=== PATIENT | female | born 1940 | race Caucasian/White ===

== ENCOUNTER 2017-01-08 06:59 | Day surgery (SDC) | payer BC, MEDICARE ==
[~2017-01-08 06:59] MED LIST: Lactated Ringers 1,000 ML IV SCH; Lidocaine 1%/Sod Bicarbonate in NS 8.4% 1 ML Syringe IV PRN; Sodium Chloride 0.9% 10 ML Syringe FLUSH PRN
[2017-01-08] MEDS ORDERED: fentaNYL 100 MCG/2 ML SDV ONE (07:13)
[2017-01-08] MEDS ORDERED: Propofol 200 MG/20 ML SDV ONE ×3 (07:13→09:26)
[2017-01-08] MEDS ORDERED: Ondansetron 4 MG/2 ML SDV ONE (07:14)
--- NOTE | 2017-01-08 07:27 | PCM.PREANE ---
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 Respiratory: Reports: no symptoms (smoker) Cardiovascular: Reports: blood pressure problem GI: Reports: no symptoms - PHYSICAL ASSESSMENT HR: 56 O2 Sat by Pulse Oximetry: 95 RR: 16 BP: 142/64 Temp: 36.8 C Height: 1.55 m Weight: 74.843 kg NPO Status Date: 01/07/17 NPO Status Time: 21:30 ASA Class: 3 Mental Status: alert & oriented x3 Airway Class: Mallampati = 2 Dentition: Reports: dentures, edentulous Thyro-Mental Finger Breadths: 3 Mouth Opening Finger Breadths: 3 ROM/Head Extension: limited/partial Respiratory Status: lungs clear to auscultation bilaterally Cardiovascular Status: regular rate & rhythm, normal S1, S2, blood pressure WNL - ALLERGIES Allergies/Adverse Reactions: Allergies Allergy/AdvReac Type Severity Reaction Status Date / Time lisinopril Allergy Anaphylactic Verified 01/07/17 15:02 Shock valsartan [From Diovan] Allergy Anaphylactic Verified 01/07/17 15:02 Shock - BLOOD Blood Available: No Product(s) Available: None - ANESTHESIA PLAN Preop Beta Joleen: No Beta Joleen: Metoprolol Beta-Joleen Last Dose Date: 01/08/17 Beta-Joleen Last Dose Time: 05:30 Anesthesia Type Planned: general anesthesia - ACKNOWLEDGEMENTS Pt an appropriate candidate for the planned anesthesia: Yes Alternatives and risks of anesthesia discussed w pt/guardian: Yes Pt/Guardian understands and agree with anesthesia plan: Yes PreAnesthesia Questionnaire HEENT History: Reports: Impaired vision Other HEENT History: wears glasses Cardiovascular History: Reports: CAD, Heart murmur, High cholesterol, Hypertension Respiratory History: Reports: Bronchitis, recurrent Other Respiratory History: 50 + year smoking history, ground galss opacity present on lung imaging Gastrointestinal History: Reports: None Genitourinary History: Reports: None [employer] M[employer]ER History: Reports: Other (see below) Other OB/BYN History: post menopausal bleeding Musculoskeletal History: Reports: None Neurological History: Reports: None Psychiatric History: Reports: None Endocrine/Metabolic History: Reports: None Hematologic History: Reports: None Immunologic History: Reports: None Oncologic (Cancer) History: Reports: Squamous cell carcinoma Other Oncologic History: malignant mass under left jaw, mass removed along with small amount of jaw bone 6 years ago followed by radiation. Pt also had a couple small masses in L nare that were removed 2 years ago. Dermatologic History: Reports: None - Past Surgical History Head Surgeries/Procedures: Reports: None HEENT Surgical History: Reports: Cataract surgery Other HEENT Surgeries/Procedures: Pt had malignant growth below L side of jaw, mass and small amount of jaw bone removed, tongue reconstuction Other Oncologic Surgeries/Procedures: see above - SUBSTANCE USE Smoking Status *Q: Current Every Day Smoker Tobacco Use Within Last Twelve Months: Cigarettes Second Hand Smoke Exposure: Yes Recreational Drug Use History: No - HOME MEDS Home Medications: Home Meds Calcium Carbonate [Calcium] 500 mg PO BID 05/19/15 [History] Hydrochlorothiazide 12.5 mg PO DAILY 05/19/15 [History] Metoprolol Succinate [Toprol XL] 25 mg PO DAILY 05/19/15 [History] Multivitamin [Multi-Vitamin Daily] 1 tab PO DAILY 05/19/15 [History] NIFEdipine [Nifedipine ER] 30 mg PO DAILY 05/19/15 [History] Ibuprofen 1 - 3 tab PO Q6H PRN 01/07/17 [History] Vitamin B Complex [B Complex] 1 tab PO DAILY 01/07/17 [History] - CURRENT (IN HOUSE) MEDS Current Meds: Current Medications Lactated Ringer's (Ringers, Lactated) 1,000 mls @ 125 mls/hr IV ASDIRECTED MAUREEN Stop: 01/08/17 23:00 Lidocaine/Sodium Bicarbonate (Buffered Lidocaine 1% In Ns 8.4%) 0.25 ml IV ONETIME PRN PRN Reason: Prior to IV Start Stop: 01/08/17 18:00 Sodium Chloride (Saline Flush) 10 ml FLUSH ASDIRECTED PRN PRN Reason: Keep Vein Open Stop: 01/08/17 18:00 Discontinued Medications Fentanyl (Sublimaze) Confirm Administered Dose 100 mcg .ROUTE .STK-MED ONE Stop: 01/08/17 07:14 Ondansetron HCl (Zofran) Confirm Administered Dose 4 mg .ROUTE .STK-MED ONE Stop: 01/08/17 07:15 Propofol (Diprivan 20 Ml) Confirm Administered Dose 200 mg .ROUTE .[facility] ONE Stop: 01/08/17 07:14
[2017-01-08] MEDS ORDERED: Ondansetron 4 MG/2 ML SDV IVPUSH PRN (07:32)
[2017-01-08] MEDS ORDERED: fentaNYL 100 MCG/2 ML SDV IVPUSH PRN (07:32)
[2017-01-08] MEDS ORDERED: Bupivacaine 0.5% 30 ML SDV ONE (08:05)
[2017-01-08] MEDS ORDERED: ePHEDrine/Normal Saline 25 MG/5 ML Syringe ONE (08:40)
--- NOTE | 2017-01-08 09:24 | PCM.OPNOTE ---
- General Post-Op/Procedure Note Date of Surgery/Procedure: 01/08/17 Operative Procedure(s): Hysteroscopy, dilation and curettage Findings: polypoid appearing endometrium Pre Op Diagnosis: postmenopausal bleeding Post-Op Diagnosis: Same Anesthesia Technique: MAC Primary Surgeon: Lamar Dhaliwal Anesthesia Provider: Merlyn Calvert EBL in mLs: 20 Complications: None Condition: Good Free Text/Narrative:: Patient taken to OR. MAC initiated. Prepped and draped in lithotomy. Speculum placed. Local anesthesia infiltrated. Dilated to allow hysteroscope passage. Hysteroscopy preformed. Curettage preformed.
--- NOTE | 2017-01-08 09:45 | PCM48HPAN ---
Post Anesthesia Note - EVALUATION WITHIN 48HRS OF ANESTHETIC Vital Signs in Normal Range: Yes Patient Participated in Evaluation: Yes Respiratory Function Stable: Yes Airway Patent: Yes Cardiovascular Function Stable: Yes Hydration Status Stable: Yes Pain Control Satisfactory: Yes Nausea and Vomiting Control Satisfactory: Yes Mental Status Recovered: Yes
--- NOTE | 2017-01-08 10:23 | PCM.SN ---
- Free Text/Narrative Note: patient has a history of jaw cancer with s/p radiation. pt has limited neck extension, opens mouth wide, is edentuous. attempted to place LMA size 4 first , then size 3 with no success. Size 4, I could only get to post pharynx and was very tight. attempted size 3, also very tight. converted to MAC with success. If needing GA, I would have the glidescope at bedside and would utilize smaller ETT.
--- NOTE | 2017-01-08 10:31 | PCM.OPNOTE ---
- General Post-Op/Procedure Note Date of Surgery/Procedure: 01/08/17 Operative Procedure(s): Diagnostic colonoscopy with cold forceps biopsy and tattooing Pre Op Diagnosis: Abnormal PET scan, no previous colonoscopy Post-Op Diagnosis: 1. Ascending colon mass, highly suspicious for cancer. 2. Colon polyps. 3. Severe diverticulosis of the sigmoid colon Anesthesia Technique: MAC Primary Surgeon: Judy Luke Anesthesia Provider: Merlyn Lowry Pathology: 1. Ascending colon mass 2. Transverse colon polyps x 2 3. Splenic flexure polyp 4. Rectal polyps x 3 Fluid Replacement, Intraop: 900 (mL crystalloid ) EBL in mLs: 1 Complications: None Condition: Good Free Text/Narrative:: INDICATION FOR PROCEDURE: The patient is a 76-year-old woman who was referred to me by BERT Watters for evaluation for an abnormal PET scan with uptake in the ascending colon and some associated lymph nodes. Performing a diagnostic colonoscopy and the associated risks of the procedure had been discussed with the patient. The patient found these risks acceptable and agreed to proceed. DESCRIPTION OF PROCEDURE: The patient was taken to the operating room and placed in left lateral decubitus position. After induction of adequate sedation , a digital rectal exam was performed which was unremarkable. A pediatric Olympus colonoscope was inserted into the rectum and guided under direct visualization to the appendiceal orifice and ileocecal valve. A mass was noted in the ascending colon, it was ulcerated and nonobstructive. It was not actively bleeding. Multiple cold forceps biopsies were obtained. The area adjacent to the mass, just distal to it, was tattooed with Swathi ink in 3 quadrants. 2 small sessile transverse colon polyps were noted and removed using cold forceps. One small sessile splenic flexure polyp was noted and removed using cold forceps. There were multiple diminutive rectal polyps, 3 of the polyps were removed using cold forceps, I suspect that these are most likely hyperplastic. The quality of the prep was good. There was no evidence of angiodysplasias. The scope was withdrawn into the rectum and retroflexed. There was no significant prominence of the patient's internal hemorrhoids. The scope was straightened, the colon was desufflated, and the scope was withdrawn. The patient was awakened from sedation and transferred to the recovery room in stable condition having tolerated the procedure well. POSTOPERATIVE PLAN: I discussed with the patient and her son my intraoperative findings and recommendations, with my suspicion of an ascending colon cancer that has spread locally to the lymph nodes based on PET. The patient will need to have a CAT scan of the chest, abdomen, and pelvis. She will need preoperative laboratory studies including a CEA, CBC, and CMP. The patient will also need to see BERT Watters for preoperative evaluation for laparoscopic right hemicolectomy. She will need an echocardiogram, pulmonary function testing, and a nuclear stress test.
[2017-01-08 11:15] VITALS: BP 124/61
== END 2017-01-08 11:03 | disposition home or self-care (01) ==
LOC: JD.SDS 06:59
PROVIDERS: ATTEND Obstetrics & Gynecology
DX: N95.0 Postmenopausal bleeding (principal); D12.3 Benign neoplasm of transverse colon; K63.5 Polyp of colon; E78.5 Hyperlipidemia, unspecified; I10 Essential (primary) hypertension
CPT/HCPCS: 45380; 58558; 88305; J3010; J7050; J7120; 00810; J2405; J2704

== ENCOUNTER → 2017-03-23 | Day surgery (SDC) | payer BC, MEDICARE ==
[~2017-03-23] MED LIST changes: +Bupivacaine 0.25%/EPINEPHrine 1:200,000 30 ML SDV ONE; +Bupivacaine 0.5%/EPINEPHrine 1:200,000 50 ML MDV ONE; +Heparin Sodium 5,000 Units/ML Vial ONE; +Lidocaine 1% 4 ML ONE; +Lidocaine 1% with EPINEPHrine 1:100,000 20 ML MDV ONE; +Midazolam 1 MG/ML 2 ML SDV ONE; +Propofol 200 MG/20 ML SDV ONE; +Sodium Chloride 0.9% 50 ML SDV ONE; +ceFAZolin 1 GM Vial ONE; +ePHEDrine/Normal Saline 25 MG/5 ML Syringe ONE; +fentaNYL 100 MCG/2 ML SDV ONE
--- NOTE | 2017-03-23 09:51 | PCM.PREANE ---
Preanesthetic Assessment - Anesthesia/Transfusion/Family Hx Anesthesia History: Prior Anesthesia Without Reaction Family History of Anesthesia Reaction: No Transfusion History: No Prior Transfusion(s) Type of Transfusion Reactions: Reports: Unknown Intubation History: History of Difficulty Intubation - Review of Systems General: No Symptoms Pulmonary: No Symptoms Cardiovascular: No Symptoms Gastrointestinal: No symptoms Neurological: No Symptoms Other: Reports: None - Physical Assessment NPO Status Date: 03/22/17 NPO Status Time: 23:00 (sip of water at 0715 with pills) Pulse: 51 O2 Sat by Pulse Oximetry: 98 Respiratory Rate: 16 Blood Pressure: 130/59 Temperature: 98.7 F Height: 5 ft 1 in Weight: 74.843 kg ASA Class: 3 Mental Status: Alert & Oriented x3 Dentition: Reports: Dentures (top ), Edentulous (bottom) Thyro-Mental Finger Breadths: 3 Mouth Opening Finger Breadths: 3 ROM/Head Extension: Limited/Partial Lungs: Clear to auscultation, Normal respiratory effort Cardiovascular: Regular Rate, Regular Rhythm - Lab Values: 03/04/17 labs Cr 0.65 BUN 22 01/12/17 Hgb 12.9 PLT 231 K 3.4 Na 144 Cl 105 - Imaging/EKG Impressions: 12/18/16 EKG Sinus anna left axis deviation hr 53 echo 01/18/17 EFf 60-65% - Allergies Allergies/Adverse Reactions: Allergies Allergy/AdvReac Type Severity Reaction Status Date / Time lisinopril Allergy Anaphylactic Verified 03/22/17 13:45 Shock valsartan [From Diovan] Allergy Anaphylactic Verified 03/22/17 13:45 Shock - Blood Blood Available: No - Anesthesia Plan Beta Joleen: Metoprolol Med Last Dose Date: 03/23/17 Med Last Dose Time: 07:15 - Acknowledgements Anesthesia Type Planned: MAC Pt an Appropriate Candidate for the Planned Anesthesia: Yes Alternatives and Risks of Anesthesia Discussed w Pt/Guardian: Yes Pt/Guardian Understands and Agrees with Anesthesia Plan: Yes PreAnesthesia Questionnaire HEENT History: Reports: Impaired vision Other HEENT History: wears glasses Cardiovascular History: Reports: CAD, Heart murmur, High cholesterol, Hypertension Respiratory History: Reports: Bronchitis, recurrent Other Respiratory History: 50 + year smoking history, ground galss opacity present on lung imaging Gastrointestinal History: Reports: None Genitourinary History: Reports: None 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 Pt also had a couple small masses in L nare that were removed 2 years ago. Dermatologic History: Reports: None - Past Surgical History Head Surgeries/Procedures: Reports: None HEENT Surgical History: Reports: Cataract surgery Other HEENT Surgeries/Procedures: Pt had malignant growth below L side of jaw, mass and small amount of jaw bone removed, tongue reconstuction GI Surgical History: Reports: Colonoscopy, Other (see below) Other GI Surgeries/Procedures: laparoscopic R hemicolectomy Female Surgical History: Reports: Hysterectomy Other Oncologic Surgeries/Procedures: see above - SUBSTANCE USE Smoking Status *Q: Current Every Day Smoker (1 ppd for 61 years) Tobacco Use Within Last Twelve Months: Cigarettes Second Hand Smoke Exposure: Yes Days Per Week of Alcohol Use: 0 Recreational Drug Use History: No - HOME MEDS Home Medications: Home Meds Metoprolol Succinate [Toprol XL] 25 mg PO DAILY 05/19/15 [History] Multivitamin [Multi-Vitamin Daily] 1 tab PO DAILY 05/19/15 [History] NIFEdipine [Nifedipine ER] 30 mg PO DAILY 05/19/15 [History] Ibuprofen 1 - 3 tab PO Q6H PRN 01/07/17 [History] Vitamin B Complex [B Complex] 1 tab PO DAILY 01/07/17 [History] Calcium Carbonate/Vitamin D3 [Calcium 500-Vit D3 200 Tablet] 1 tab PO DAILY 07/01 [History] Hydrochlorothiazide 25 mg PO DAILY 03/22/17 [History] Hyrum-3/DHA/Epa/Fish Oil [Fish Oil 500 MG Softgel] 500 mg PO DAILY 03/22/17 [ History] - CURRENT (IN HOUSE) MEDS Current Meds: Current Medications Lactated Ringer's (Ringers, Lactated) 1,000 mls @ 125 mls/hr IV ASDIRECTED MAUREEN Lidocaine/Sodium Bicarbonate (Buffered Lidocaine 1% In Ns 8.4%) 0.25 ml IV ONETIME PRN PRN Reason: Prior to IV Start Sodium Chloride (Saline Flush) 10 ml FLUSH ASDIRECTED PRN PRN Reason: Keep Vein Open Discontinued Medications Cefazolin Sodium (Ancef) Confirm Administered Dose 2 gm .ROUTE .STK-MED ONE Stop: 03/23/17 09:51 Fentanyl (Sublimaze) Confirm Administered Dose 100 mcg .ROUTE .STK-MED ONE Stop: 03/23/17 09:51 Lidocaine HCl (Xylocaine-Mpf 1%) Confirm Administered Dose 4 mls @ as directed .ROUTE .STK-MED ONE Stop: 03/23/17 09:51 Midazolam HCl (Versed 1 Mg/Ml) Confirm Administered Dose 2 mg .ROUTE .STK-MED ONE Stop: 03/23/17 09:51 Propofol (Diprivan 20 Ml) Confirm Administered Dose 200 mg .ROUTE .STK-MED ONE Stop: 03/23/17 09:51
--- NOTE | 2017-03-23 11:25 | PCM48HPAN ---
Post Anesthesia Note - EVALUATION WITHIN 48HRS OF ANESTHETIC Vital Signs in Normal Range: Yes Patient Participated in Evaluation: Yes Respiratory Function Stable: Yes Airway Patent: Yes Cardiovascular Function Stable: Yes Hydration Status Stable: Yes Pain Control Satisfactory: Yes Nausea and Vomiting Control Satisfactory: Yes Mental Status Recovered: Yes (no complaints. awake and talking)
--- NOTE | 2017-03-23 11:53 | PCM.OPNOTE ---
- General Post-Op/Procedure Note Date of Surgery/Procedure: 03/23/17 Operative Procedure(s): 1. Right subclavian Port-A-Cath placement. 2. Fluoroscopic guidance and interpretation Pre Op Diagnosis: 1. 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 Maddie Hoffman for Port-A-Cath placement. The patient has known adenocarcinoma of the colon and endometrium and has completed surgical excision and is ready to proceed with chemotherapy. She has had a previous (remote) left neck dissection for cancer. Due to this, we wanted to proceed with line placement on the right side as it was likely the patient had no internal jugular on the left, however, an operative report from the neck dissection was unavailable for review. I discussed with the patient placement of a Port-A-Cath and the associated risks. The patient found these risks acceptable and agreed to proceed. DESCRIPTION OF PROCEDURE: The patient was taken to the operating room and placed in the supine position. The arms were tucked at the sides bilaterally and pressure points were padded. A transverse subscapular roll was placed. The patient's head was placed in a gel doughnut. Preoperative antibiotics were administered as per protocol. The patient was placed in Trendelenburg. The neck and upper chest were prepped and draped in usual sterile fashion with chlorhexidine. We had discussed placement of the Port-A-Cath preferentially on the right. Approximately 10 mL of local anesthetic were infiltrated into the area of the planned port placement and injection site. A stab incision was made with a 15 blade. A 16-gauge needle was then used to access the right subclavian vein with return of nonpulsatile blood on the first attempt. A guidewire was passed without difficulty and its position was confirmed using fluoroscopy in the inferior vena cava. The needle was removed and the port pocket incision was made. A pocket was made directly over the chest wall fascia. A dilator was then advanced over the guidewire under direct fluoroscopic visualization. The inner cannula was removed as well as the wire. The catheter was advanced to the atriocaval junction and this was performed under fluoroscopy. The catheter was then trimmed and attached to the port. The port was then accessed and nonpulsatile blood was easily withdrawn. The port was then flushed with sterile saline. The port was secured in the pocket using 2-0 Prolene interrupted suture x3. The port was accessed once more and blood was aspirated and a total of 2 mL of 5000 units per mL heparin was instilled into the catheter for packing. 3-0 Vicryl suture was then used to reapproximate the deep subcutaneous tissue. 4-0 Vicryl was then used in running subcuticular fashion to reapproximate the skin. A folded 2 x 2 and a Tegaderm was applied. The patient was awakened from sedation and transferred to the recovery room in stable condition having tolerated the procedure well. Sponge and instrument counts were reported as correct at the end of the case. Fluoroscopy Report - Fluoroscopic guidance was used throughout the procedure to visualize wire placement as well as advancement of the dilator. I also provided immediate interpretation of the images in addition to utilization of the guidance. The patient's right chest and mediastinum was examined. There was no obvious pneumothorax. No obvious lung masses were noted in the limited field of view. The guidewire was seen entering the right subclavian vein and traversing the superior vena cava. The dilator was advanced into the right subclavian vein. The cardiac silhouette was unremarkable. No other acute findings were noted. POST-OPERATIVE INSTRUCTIONS: A postoperative chest x-ray was obtained which I immediately reviewed. The port was in excellent position and there was no evidence of pneumothorax. The Port-A-Cath is immediately usable. The patient has been provided with a prescription for EMLA cream, to apply a dime-sized amount approximately 15-20 minutes prior to accessing the port. Pain medication was also provided. The patient may follow up with me on an as needed basis.
[2017-03-23 13:29] VITALS: BP 155/63
--- NOTE | 2017-03-24 11:56 | CR ---
Addendum: Study has a diagnostic code as follows: Diagnostic code #2 --- Addendum1 above dictated on [03/24/2017 12:52] by [Nikki Trejo, Gurpreet Del Cid] --- --- Addendum1 above signed on [03/24/2017 12:54] by [Nikki Trejo, Gurpreet Del Cid] --- --- Original report below dictated on [03/24/2017 07:09] by [Nikki Trejo Hilton J.] --- --- Original report below signed on [03/24/2017 11:52] by [Nikki Trejo, Gurpreet Del Cid] --- Thoracic spine: Two fluoroscopic spot views were obtained in frontal projection centered to the lower thoracic spine/lower mediastinum utilizing C-arm device. Disc space narrowing and endplate osteophytes are seen. I do not see definite visualization of the Port-A-Cath catheter. Fluoroscopy time given as 54.1 seconds. Impression: 1. Findings as noted above. --- Addendum1 signed ---
--- NOTE | 2017-03-24 11:56 | CR ---
Chest: Portable view of the chest was obtained. Comparison: Previous chest x-ray of 02/06/13. Heart is enlarged. Hiatal hernia is seen which is small to moderate in size. Lungs are clear but hyperinflated suggesting emphysematous change. Right-sided Port-A-Cath is seen. Tip lies within the superior vena cava. Mild degenerative change and scoliosis is present within the spine. Impression: 1. Port-A-Cath. Tip lies within the superior vena cava. 2. Other incidental findings as described above. Diagnostic code #2
== END | disposition home or self-care (01) ==
LOC: JD.SDS 09:29
PROVIDERS: ATTEND Surgery
DX: C18.9 Malignant neoplasm of colon, unspecified (principal); C54.1 Malignant neoplasm of endometrium; I10 Essential (primary) hypertension; E78.5 Hyperlipidemia, unspecified; Z92.3 Personal history of irradiation; Z72.0 Tobacco use; Z88.8 Allergy status to other drugs, medicaments and biological substances; Z90.710 Acquired absence of both cervix and uterus; Z98.890 Other specified postprocedural states; Z79.899 Other long term (current) drug therapy; F17.210 Nicotine dependence, cigarettes, uncomplicated
CPT/HCPCS: 36561; 71010; 77001; C1788; J0690; J1644; J2250; J3010; J7050; J7120; 00532; J2704

== ENCOUNTER 2019-04-30 13:58 | Emergency (ER) | payer OTHER, BC, MEDICARE ==
[2019-04-30 14:08] VITALS: BP 196/147
--- NOTE | 2019-04-30 15:01 | EDM.PDOC ---
ED HPI GENERAL MEDICAL PROBLEM - General Chief Complaint: Lower Extremity Injury/Pain Stated Complaint: LT KNEE, RT ELBOW AND FACE INJURY Time Seen by Provider: 04/30/19 14:58 Source of Information: Reports: Patient History Limitations: Reports: No Limitations - History of Present Illness INITIAL COMMENTS - FREE TEXT/NARRATIVE: 79-year-old female reports that she was at work this morning and slipped on a wet floor outside of one of the freezer units. This caused her to fall forwards onto all fours. She was holding onto a container at the time and it came up and hit her in the right side of the face as well. States she states injury occurred shortly after 1200 hrs. today. She does have some tenderness in the right kevin-face over the maxillary sinus. Tenderness to the right elbow tenderness to the left hand proximal to the first metacarpal. She has marked swelling over her left anterior knee and mild swelling over the right knee. She states she can walk okay although she's limping. She denies hitting her head hard and certainly no loss of consciousness. Denies any worsening of her neck pain. 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 She has a Port-A-Cath in her right upper anterior chest. She denies hitting hurting her ribs or sternum when she fell. Onset: Today Onset Date: 04/30/19 Onset Time: 12:05 Duration: Hour(s): Location: Reports: Face, Upper Extremity, Left (Left radial hand over the wrist and Toribio of the first metacarpal joint), Upper Extremity, Right, Lower Extremity , Left (Right olecranon process of elbow left knee with marked swelling and hematoma over the patella), Lower Extremity, Right (Right anterior knee with superficial abrasions and no swelling) Quality: Reports: Ache (Particularly left knee and right elbow and right ekvin- face.) Severity: Moderate (Moderate contusion and swelling to the left knee with hematoma formation) Improves with: Reports: Rest Worsens with: Reports: Movement (Walking) Context: Denies: Activity, Exercise, Lifting, Sick Contact, Trauma, Other Associated Symptoms: Reports: Shortness of Breath. Denies: Confusion, Chest Pain, Cough, cough w sputum, Diaphoresis, Fever/Chills, Headaches, Loss of Appetite, Malaise, Rash, Seizure, Syncope, Weakness Treatments T[employer] SUR[employer]: Reports: Other (see below) (None.) - Related Data Allergies Allergy/AdvReac Type Severity Reaction Status Date / Time lisinopril Allergy Anaphylactic Verified 04/30/19 14:08 Shock valsartan [From Diovan] Allergy Anaphylactic Verified 04/30/19 14:08 Shock Home Meds: Home Meds Metoprolol Succinate [Toprol XL] 25 mg PO DAILY 05/19/15 [History] Multivitamin [Multi-Vitamin Daily] 1 tab PO DAILY 05/19/15 [History] NIFEdipine [Nifedipine ER] 30 mg PO DAILY 05/19/15 [History] Ibuprofen 1 - 3 tab PO Q6H PRN 01/07/17 [History] Vitamin B Complex [B Complex] 1 tab PO DAILY 01/07/17 [History] Calcium Carbonate/Vitamin D3 [Calcium 500-Vit D3 200 Tablet] 1 tab PO DAILY 07/01 [History] [place]-3/DHA/Epa/Fish Oil [Fish Oil 500 MG Softgel] 500 mg PO DAILY 03/22/17 [ History] hydroCHLOROthiazide [Hydrochlorothiazide] 25 mg PO DAILY 03/22/17 [History] Past Medical History HEENT History: Reports: Impaired Vision Other HEENT History: wears glasses Cardiovascular History: Reports: CAD, Heart Murmur, High Cholesterol, Hypertension Respiratory History: Reports: Bronchitis, Recurrent Other Respiratory History: 50 + year smoking history, ground galss opacity present on lung imaging Gastrointestinal History: Reports: None Genitourinary History: Reports: None [employer] History: Reports: Other (See Below) Other [employer] History: post menopausal bleeding Musculoskeletal History: Reports: None Neurological History: Reports: None Psychiatric History: Reports: None Endocrine/Metabolic History: Reports: None Hematologic History: Reports: None Immunologic History: Reports: None Oncologic (Cancer) History: Reports: None, Colon, Squamous Cell Carcinoma, Other (See Below) Other Oncologic History: malignant mass under left jaw, mass removed along with small amount of jaw bone 6 years ago followed by radiation. Pt also had a couple small masses in L nare that were removed 2 years ago. Dermatologic History: Reports: None - Past Surgical History Head Surgeries/Procedures: Reports: None HEENT Surgical History: Reports: Cataract Surgery GI Surgical History: Reports: Colonoscopy, Other (See Below) Female Surgical History: Reports: Hysterectomy Social & Family History - Tobacco Use Smoking Status *Q: Current Every Day Smoker Years of Tobacco use: 65 Packs/Tins Daily: 0.5 - Caffeine Use Caffeine Use: Reports: None - Recreational Drug Use Recreational Drug Use: No - Living Situation & Occupation Living situation: Reports: , Alone Occupation: Employed Review of Systems - Review of Systems Review Of Systems: See Below Constitutional: Denies: Chills, Diaphoresis, Fever, Weakness, Other Eyes: Reports: Glasses Ears: Reports: No Symptoms Nose: Reports: No Symptoms, Other (She did not contused her nose.) Mouth/Throat: Reports: No Symptoms, Other (She has previous surgical scars from removal of a 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 Apparently the mandible was rebuilt with one of her ribs.) Respiratory: Reports: Shortness of Breath (Occasional positive shortness of breath.) Cardiovascular: Denies: Chest Pain, Edema, Irregular Heart Rate, Palpitations, Syncope, Other GI/Abdominal: Reports: No Symptoms Genitourinary: Reports: Other (Emergency mildly incontinent with stress and urge components) Musculoskeletal: Reports: Joint Pain (Knee sips low back shoulders and neck at times) Skin: Reports: Other (Has had squamous cell carcinoma removed from neck. Has had radiotherapy to the left side of her mandible and face and neck.) Neurological: Reports: No Symptoms Psychiatric: Reports: No Symptoms ED EXAM, GENERAL - Physical Exam Exam: See Below Exam Limited By: No Limitations General Appearance: Alert, WD/WN, No Apparent Distress Eye Exam: Bilateral Eye: Normal Inspection Nose: Normal Inspection, Other Throat/Mouth: Normal Inspection, Normal Oropharynx (No injury to the nose.), Other (No injury to the tongue or oral cavity.) Head: Atraumatic, Normocephalic, Facial Swelling (She has suffered a contusion to the right kevin-face over the maxillary sinus. I will clinically the zygomatic processes and the maxillary sinus in the maxilla are intact. Normal), Facial Tenderness ( opening and closing of the temporomandibular joints with no trismus. right kevin-face over the maxillary sinus. ) Neck: Normal Inspection, Limited Range of Motion (Decreased extension of the cervical spine otherwise full lateral range of motion and clinically no fracture of the neck.) Respiratory/Chest: No Respiratory Distress, Lungs Clear, Normal Breath Sounds, Chest Non-Tender, Other (No injuries to the sternum or ribs on compression. She has a Port-A-Cath right upper anterior chest. It has not been used recently for chemotherapy.) Cardiovascular: Regular Rate, Rhythm, No Edema, No Gallop, No Murmur, No Rub Peripheral Pulses: 1+: Posterior Tibial (L), Posterior Tibial (R), Dorsalis Pedis (L), Dorsalis Pedis (R) GI/Abdominal: Normal Bowel Sounds, Soft, Non-Tender, No Organomegaly, No Abnormal Bruit, No Mass, Pelvis Stable Back Exam: Other (Mild mild kyphosis thoracic spine. No tenderness throughout the spine abrasions or contusions.) Extremities: Other (Examination of the extremities shows a ecchymoses over the right olecranon process but full pronation supination at the elbow and extension flexion with no fractures. She has a contusion to the radial aspect of her left hand over the first metacarpal and wrist area. It is approximately 3 cm in diameter but nonpainful and clinically has no fractured wrist or fingers and full pronation supination at the elbow. Does have decreased range of motion of both shoulders due to degenerative rotator cuff disease particularly noted on the right side. No injuries to the shoulders or acromioclavicular joints appreciated clavicles intact. Show some superficial abrasions over the anterior aspect of the right knee. Range of motion is full. Left knee shows a hematoma with marked ecchymoses over the left patella. There does not appear to be any true knee joint effusion and she is able to stand and weight-bear without pain.) Neurological: Alert, Oriented, CN II-XII Intact, Normal Cognition Psychiatric: Normal Affect, Normal Mood Skin Exam: Warm, Dry, Intact, Normal Color, Ecchymosis (As described above.) Course - Vital Signs Last Recorded V/S: Last Vital Signs Temp 36.1 C 04/30/19 14:06 Pulse 94 04/30/19 14:06 Resp 17 04/30/19 14:06 BP 196/147 H 04/30/19 14:06 Pulse Ox 96 04/30/19 14:06 - Orders/Labs/Meds Orders: Active Orders 24 hr Category Date Time Status Knee 3V Lt [CR] Stat Exams 04/30/19 14:58 Taken - Radiology Interpretation Free Text/Narrative:: 79-year-old female presents to the ED for evaluation after injury in the workplace. She works at [employer]. She states she slipped on some water that was on the floor outside of one of the coolers. This caused her to land on all 4 extremities. She states she was holding onto a canister in it bumped into the right side of her face causing some soft tissue injury to the right kevin-face particularly over the right maxillary sinus. Her nose was not injured and her eye was not injured. Maxilla is normal. No swelling of the lip. No evidence of intraoral injuries. She has decreased or limited range of motion of her cervical spine particularly in extension which he reports is chronic. She's had previous surgery to her left mandible requiring one of her ribs to replace the mandible due to cancer. Other injuries are minor with bruising over the olecranon process of the right elbow without any signs of fracture. She has a contusion to the radial aspect of her left hand again without any clinical signs of fractures. No injuries to the chest wall shoulders or humeri. No injuries to the pelvis. She has some superficial abrasions to the right anterior knee with no swelling. She has a marked hematoma over the left patella with no true joint effusion. It appears to have been bleeding into the prepatellar bursa. Plan x-ray of the left knee to be done. - Re-Assessments/Exams Free Text/Narrative Re-Assessment/Exam: 04/30/19 16:00: X-ray of the left knee reveals no injuries to the distal femur or tibia. There is minimal arthritic changes in the medial joint compartment. The patella has a spur off its superior surface and it appears that she is a nondisplaced fracture through the superior part of the spur. The true patella is on injured. Patient is able to ambulate quite well. He was reassured that injuries are superficial. Advised ice pack to the left knee one half hour out of every 4 hours for the next couple of days. Tylenol 650 mg every 6 hours for pain relief if needed. Off work the remainder of the day and off work tomorrow and may then return to work. Departure - Departure Time of Disposition: 15:39 Disposition: Home, Self-Care 01 Condition: Fair Clinical Impression: Contusion of right elbow, initial encounter, Contusion of left hand, initial encounter, Contusion of left knee, initial encounter Contusion of face Qualifiers: Encounter type: initial encounter Qualified Code(s): S00.83XA - Contusion of other part of head, initial encounter - Discharge Information *PRESCRIPTION DRUG MONITORING PROGRAM REVIEWED*: Not Applicable *COPY OF PRESCRIPTION DRUG MONITORING REPORT IN PATIENT BAILEY: Not Applicable Instructions: Contusion Referrals: Mandi Allison NP [Primary Care Provider] - Forms: ED Department Discharge, ED Return to Work/School Form Additional Instructions: Evaluation the emergency room today in regards to injuries sustained from slipping on a wet floor. This resulted in you going down on all 4 extremities. You were carrying a canister which struck you in the right side of the face and caused a contusion to the soft tissues of the right facial cheek overlying the maxillary sinus. No evidence of facial bone fractures identified. I would anticipate her neck might be more stiff and sore tomorrow as well due to hyperextension injury from the fall. This often will start to occur 2-3 days after injury due to ligament and muscle strain. The suffered a contusion to your right elbow with bruising over the olecranon process but no evidence of bony fracture. Similarly contusion to the medial aspect of your left hand below the thumb with no evidence of fracture. Contusion to both knees much worse on the left side with traumatic bursitis on the left knee. X-ray reveals no fracture of the knee bones or the kneecap. There is a spur on the superior portion of the patella or knee That did suffer a crack which is of no consequence. He will meet however that you cannot kneel on that knee probably for at least 6-8 weeks. Just ice pack to sore spots for one half hour out of every 4 hours today and tomorrow. Off work tomorrow but tentatively may return the next day. Suggest Tylenol 650 mg every 6 hours as needed for pain relief. Follow-up with personal care physician if any further problems occur - My Orders Last 24 Hours: My Active Orders 04/30/19 14:58 Knee 3V Lt [CR] Stat - Assessment/Plan Last 24 Hours: My Active Orders 04/30/19 14:58 Knee 3V Lt [CR] Stat
--- NOTE | 2019-05-01 08:53 | CR ---
Left knee: AP, lateral and sunrise patellar views of the left knee were obtained. Comparison: No prior knee exam. Spurring is noted at the attachment of the Achilles tendon to the calcaneus. Soft tissue swelling is seen anteriorly. Minimal joint space narrowing is noted within the medial knee. No joint effusion is seen. Mild joint space narrowing is seen within the lateral patellofemoral joint. Impression: 1. Soft tissue swelling within the anterior knee. 2. Mild degenerative change. 3. No acute bony abnormality is identified. Diagnostic code #2
== END 2019-04-30 15:54 | disposition home or self-care (01) ==
LOC: JD.ED 13:58
DX: S00.83XA Contusion of other part of head, initial encounter (principal); S50.01XA Contusion of right elbow, initial encounter; S60.222A Contusion of left hand, initial encounter; S80.02XA Contusion of left knee, initial encounter; I10 Essential (primary) hypertension; I25.10 Atherosclerotic heart disease of native coronary artery without angina pectoris; F17.210 Nicotine dependence, cigarettes, uncomplicated; Z98.49 Cataract extraction status, unspecified eye; Z88.8 Allergy status to other drugs, medicaments and biological substances; W01.0XXA Fall on same level from slipping, tripping and stumbling without subsequent striking against object, initial encounter
CPT/HCPCS: 73562-26-LT; 73562-LT; 99282; 99283-25